=== PATIENT | male | born 1960 | race Hispanic/Latino ===

== ENCOUNTER → 2020-11-05 | Outpatient (CLI) | payer MEDICAID ==
[~2020-11-05] VITALS: Ht 167.6 cm; Wt 83.5 kg
[~2020-11-05] MED LIST: REGADENOSON 0.4 MG/5 ML PF SYG IVP SCH
== END | disposition home or self-care (01) ==
LOC: SHCH 08:05
PROVIDERS: ATTEND Internal Medicine Cardiovascular Disease
DX: R94.31 Abnormal electrocardiogram [ECG] [EKG] (principal); R07.9 Chest pain, unspecified; R06.00 Dyspnea, unspecified; R07.0 Pain in throat
CPT/HCPCS: 78452; 93017; 96374; A9500 ×2